=== PATIENT | female | born 1970 | race Caucasian/White ===

== ENCOUNTER 2018-09-04 05:54 | Emergency (ER) | payer SELFPAY ==
[2018-09-04] MEDS ORDERED: Ciproflox/Dexameth OTIC.SUSP* 7.5 ML BTL LEFT EAR ONE (06:21)
--- NOTE | 2018-09-04 06:34 | ED ---
Throat Pain/Nasal Congestion - HPI Summary HPI Summary: 48 year old female presents with ear pain for her left ear for the past 3 weeks. It started after swimming. Started getting worst. She had fever once but has not had fever since. She states pain radiates around her head. She has been having intermittent sharp pain. She lost hearing 2 weeks ago of left ear. Has never had this before. Denies any sinus congestion. No sore throat. Has no medical conditions. - History of Current Complaint Chief Complaint: EDEarPain Time Seen by Provider: 09/04/18 06:13 - Allergies/Home Medications Allergies/Adverse Reactions: Allergies Allergy/AdvReac Type Severity Reaction Status Date / Time MS Sulfa Drugs [Sulfa Drugs] Allergy Severe Rash Verified 11/26/12 12:45 Beef Containing Products Allergy See Comment Verified 09/04/18 05:59 MS Ibuprofen [Ibuprofen] AdvReac Severe KIDNEY Verified 11/19/12 09:21 FAILURE Epi-pen Allergy cardiac Uncoded 11/26/12 12:46 arrest PMH/Surg Hx/FS Hx/Imm Hx Endocrine/Hematology History: Denies: Hx Anticoagulant Therapy Respiratory History: Denies: Hx Asthma Infectious Disease History: No Infectious Disease History: Denies: Traveled Outside the [place] in Last 30 Days - Family History Known Family History: Positive: Non-Contributory - Social History Alcohol Use: Occasionally Substance Use Type: Reports: Marijuana Review of Systems Negative: Fever Positive: Ear Ache Negative: Chest Pain Negative: Shortness Of Breath All Other Systems Reviewed And Are Negative: Yes Physical Exam Triage Information Reviewed: Yes Vital Signs On Initial Exam: Initial Vitals Temp Pulse Resp BP Pulse Ox 97.7 F 75 14 144/85 98 09/04/18 05:57 09/04/18 05:57 09/04/18 05:57 09/04/18 05:57 09/04/18 05:57 Vital Signs Reviewed: Yes Appearance: Positive: Well-Appearing Skin: Positive: Warm, Dry Head/Face: Positive: Normal Head/Face Inspection Eyes: Positive: Normal, EOMI, ESTEE, Conjunctiva Clear ENT: Positive: Pharynx normal, TMs normal, Other - ear canal edematous and erythematous with debris in left ear with small ear canal present due to swelling, positive tragus tenderness Respiratory/Lung Sounds: Positive: Clear to Auscultation, Breath Sounds Present Cardiovascular: Positive: Normal, RRR Abdomen Description: Positive: Nontender, Soft Bowel Sounds: Positive: Present Musculoskeletal: Positive: Normal Neurological: Positive: Normal Psychiatric: Positive: Normal Diagnostics - Vital Signs Vital Signs Temp Pulse Resp BP Pulse Ox 09/04/18 05:57 97.7 F 75 14 144/85 98 - Laboratory Lab Statement: Any lab studies that have been ordered have been reviewed, and results considered in the medical decision making process. EENT Course/Dx - Course Course Of Treatment: 48 year old female presents with ear pain for her left ear for the past 3 weeks. It started after swimming. Started getting worst. She had fever once but has not had fever since. She states pain radiates around her head. She has been having intermittent sharp pain. She lost hearing 2 weeks ago of left ear. Has never had this before. Denies any sinus congestion. No sore throat. Has no medical conditions. On exam left ear canal edematous and erythematous with debris present. removed some of the debris and placed ear wic as ear canal is severely swollen. will also placed on oral cipro due to severity of symptoms. patient understand and agrees with plan. - Differential Diagnoses Differential Diagnoses: Otitis Externa, Otitis Media, Sinusitis - Diagnoses Provider Diagnoses: Left otitis externa Discharge - Sign-Out/Discharge Documenting (check all that apply): Patient Departure Patient Received Moderate/Deep Sedation with Procedure: No - Discharge Plan Condition: Good Disposition: HOME Prescriptions: Ciprofloxacin TAB* [Cipro 500 MG TAB*] 500 mg PO BID #14 tab Patient Education Materials: Otitis Externa (ED) [place] [facility] [[place]] Additional Instructions: Use 4 drops twice a day for 7 days take cipro twice a day for 7 days Take Tylenol for pain every 6 hours as needed Avoid swimming until done with antibiotic establish care with primary Return to ED if develop any new or worsening symptoms - Billing Disposition and Condition Condition: GOOD Disposition: Home
[2018-09-04 06:51] VITALS: BP 126/74
== END 2018-09-04 06:49 | disposition home or self-care (01) ==
LOC: ED 05:54
DX: H60.92 Unspecified otitis externa, left ear (principal); Z88.2 Allergy status to sulfonamides; Z88.8 Allergy status to other drugs, medicaments and biological substances
CPT/HCPCS: 99282; A9270-GY

== ENCOUNTER 2018-09-24 11:13 | Emergency (ER) | payer SELFPAY ==
[2018-09-24 13:35] VITALS: BP 146/84
--- NOTE | 2018-09-24 14:20 | UC ---
Respiratory Complaint HPI - HPI Summary HPI Summary: 48-year-old with complaints of left ear pain, decreased hearing, nasal congestion, sore throat, and cough. States she was seen in the emergency room on 09/04/2018 for left ear pain and diagnosed with swimmer's ear and was placed on a course of Cipro for the infection which she completed. Patient states that her symptoms improved until 3 days ago when she started with ear pain and fullness in her ear. Denies fever, chills, ear drainage, dysphasia, shortness of breath, chest pain, abdominal pain, nausea, vomiting, or diarrhea. - History of Current Complaint Chief Complaint: UCRespiratory Stated Complaint: RESP COMPLAINT Time Seen by Provider: 09/24/18 13:51 Hx Obtained From: Patient Hx Last Menstrual Period: one week Pain Intensity: 7 - Allergies/Home Medications Allergies/Adverse Reactions: Allergies Allergy/AdvReac Type Severity Reaction Status Date / Time ammonia Allergy Swelling Verified 09/24/18 13:38 Beef Containing Products Allergy See Comment Verified 09/24/18 13:38 ibuprofen Allergy See Comment Verified 09/24/18 13:38 Sulfa (Sulfonamide Allergy Rash Verified 09/24/18 13:38 Antibiotics) Epi-pen Allergy cardiac Uncoded 09/24/18 13:38 arrest PMH/Surg Hx/FS Hx/Imm Hx Previously Healthy: Yes Cardiovascular History: Hypertension Other History Of: Negative For: Anticoagulant Therapy - Surgical History Surgical History: None - Family History Known Family History: Positive: Non-Contributory - Social History Occupation: Works From/At Home Lives: With Family Alcohol Use: Occasionally Substance Use Type: Marijuana Smoking Status (MU): Light Every Day Tobacco Smoker Household Exposure Type: Cigarettes Review of Systems All Other Systems Reviewed And Are Negative: Yes Constitutional: Negative: Fever, Chills Skin: Negative: Rash Eyes: Negative: Drainage, Eye Redness ENT: Positive: Sore Throat, Ear Ache - left, Nasal Discharge, Sinus Congestion. Negative: Sinus Pain/Tenderness Respiratory: Positive: Cough. Negative: Shortness Of Breath Cardiovascular: Negative: Palpitations, Chest Pain Gastrointestinal: Negative: Abdominal Pain, Vomiting, Diarrhea, Nausea Genitourinary: Positive: Negative Musculoskeletal: Positive: Negative Neurological: Positive: Negative Is Patient Immunocompromised?: No Physical Exam - Summary Physical Exam Summary: GENERAL APPEARANCE: Well developed, well nourished, alert and cooperative, and appears to be in no acute distress. EYES: Conjunctiva clear. No drainage. EARS: External auditory canals clear. Right TM normal. Left TM with small effusion and air bubbles without erythema. NOSE: Mild-moderate nasal congestion. No nasal discharge. THROAT: Pharyngeal cobblestoning. No tonsilar inflammation, swelling, exudate, or lesions. Uvula midline. Oral cavity normal. Teeth and gingiva in good general condition. NECK: Neck supple, non-tender without lymphadenopathy. CARDIAC: Normal S1 and S2. No S3, S4 or murmurs. Rhythm is regular. There is no peripheral edema, cyanosis or pallor. Extremities are warm and well perfused. Capillary refill is less than 2 seconds. Peripheral pulses intact. LUNGS: Clear to auscultation without rales, rhonchi, wheezing or diminished breath sounds. Non-productive cough. ABDOMEN: Positive bowel sounds. Soft, nondistended, nontender. No guarding or rebound. No masses or hepatosplenomegally. MUSKULOSKELETAL: ROM intact to all extremities. No joint erythema or tenderness. Normal muscular development. Normal gait. SKIN: Skin normal color, texture and turgor with no lesions or eruptions. Triage Information Reviewed: Yes Vital Signs: Initial Vital Signs Temp 98.9 F 09/24/18 13:33 Pulse 80 09/24/18 13:33 Resp 18 09/24/18 13:33 BP 146/84 09/24/18 13:33 Pulse Ox 99 09/24/18 13:33 Vital Signs Reviewed: Yes Respiratory Course/Dx - Course Course Of Treatment: 48-year-old with complaints of left ear pain, decreased hearing, nasal congestion, sore throat, and cough. States she was seen in the emergency room on 09/04/2018 for left ear pain and diagnosed with swimmer's ear and was placed on a course of Cipro for the infection which she completed. Patient states that her symptoms improved until 3 days ago when she started with ear pain and fullness in her ear. Denies fever, chills, ear drainage, dysphasia, shortness of breath, chest pain, abdominal pain, nausea, vomiting, or diarrhea. Afebrile. Hypertensive otherwise vital signs stable. Patient had mild-to- moderate nasal congestion, a small effusion with air bubbles behind the left TM without erythema, pharyngeal cobblestoning, nonproductive cough, and otherwise unremarkable exam. Suspect that her current symptoms are related to a viral upper respiratory infection with a left serous otitis. Recommending symptomatic treatment at this time including fluticasone nasal spray 2 sprays each nostril once daily and Tessalon Perles one capsule every 8 hours as needed for cough. Patient does not presently have a primary care provider therefore she is to follow-up at [facility] in 7 days if symptoms are not improving. Anticipatory guidance and warning symptoms were reviewed with the patient. Verbalizes understanding and agrees with plan of care. - Differential Dx/Diagnosis Differential Diagnosis/HQI/PQRI: Bronchitis, Lower Resp Infection, Sinusitis, Other - URI Provider Diagnosis: URI with cough and congestion, Left serous otitis media Discharge - Sign-Out/Discharge Documenting (check all that apply): Patient Departure All imaging exams completed and their final reports reviewed: No Studies - Discharge Plan Condition: Stable Disposition: HOME Prescriptions: Benzonatate CAP* [Tessalon 100 MG CAP*] 100 mg PO TID PRN #21 cap PRN Reason: Cough Fluticasone NASAL SPRAY 50MCG* [Flonase NASAL SPRAY 50MCG*] 2 spray BOTH NARES DAILY #1 btl Patient Education Materials: Upper Respiratory Infection (ED), Serous Otitis Media (ED) Referrals: No Primary Care Phys,NOPCP [Primary Care Provider] - [facility] [Outside] - 7 Days (Call for appointment) Additional Instructions: Your history and exam are consistent with a viral upper respiratory infection. Viral infections do not respond to antibiotics and are limited to the treatment of symptoms. Viral infections typically run their course in 7-10 days. Drink plenty of fluids to avoid dehydration especially if you are running any fever. Use fluticasone (Flonase) nasal spray 2 sprays each nostril once daily. Take Tessalon Perles 1 capsule every 8 hours as needed for cough. Take over the counter acetaminophen (Tylenol) or ibuprofen (Advil, Motrin) according to directions as needed for pain or fever. Use salt water gargles several times a day if you have a sore throat. You may also use Chloraseptic spray or Cepacol lonzenges according to directions which contain a numbing medication and can provide some temporary relief from your sore throat. Follow up with the [facility] in 7 days if symptoms persist. Seek immediate medical attention in the emergency room if you have fever greater than 100.5 F despite taking acetaminophen or ibuprofen, have chest pain , difficulty breathing, are unable to swallow, or have any worsening of symptoms. - Billing Disposition and Condition Condition: STABLE Disposition: Home
== END 2018-09-24 14:49 | disposition home or self-care (01) ==
LOC: UCEAST 11:13
DX: H65.92 Unspecified nonsuppurative otitis media, left ear (principal); J06.9 Acute upper respiratory infection, unspecified; I10 Essential (primary) hypertension; F17.210 Nicotine dependence, cigarettes, uncomplicated; Z88.2 Allergy status to sulfonamides
CPT/HCPCS: 99212; G0463

== ENCOUNTER 2018-10-03 06:08 | Emergency (ER) | payer SELFPAY ==
[2018-10-03] MEDS ORDERED: predniSONE TAB* 20 MG PO ONE (06:22)
[2018-10-03] MEDS ORDERED: Famotidine TAB* 20 MG PO ONE (06:23)
[2018-10-03] MEDS ORDERED: diPHENhydraMINE PO* 25 MG PO ONE (06:23)
--- NOTE | 2018-10-03 06:25 | ED ---
Allergic Reaction/Systemic - HPI Summary HPI Summary: 48-year-old female presents with a rash today. States that she gets a rash when she eats beef. She states that she took a Benadryl last night but the rash has been progressing. She states she normally gets steroids. She states she normally gets some swelling into her hands and feets if this progresses. She denies any chest or shortness breath currently. No sore throat. No abdominal pain. No nausea and vomiting. She was having left ear pain for the past month. She was initially treated for an otitis externa. She states that her symptoms seemed to get better but then after she stopped the antibiotics a couple days the symptoms got worse again. She states that she was seen in urgent care and started on Flonase with no improvement. She denies any sinus congestion. No fevers. - History of Current Complaint Chief Complaint: EDAllergicReaction Time Seen by Provider: 10/03/18 06:17 Hx Last Menstrual Period: one week Pain Intensity: 0 - Allergies/Home Medications Allergies/Adverse Reactions: Allergies Allergy/AdvReac Type Severity Reaction Status Date / Time ammonia Allergy Swelling Verified 10/03/18 06:17 Beef Containing Products Allergy See Comment Verified 10/03/18 06:17 ibuprofen Allergy See Comment Verified 10/03/18 06:17 Sulfa (Sulfonamide Allergy Rash Verified 10/03/18 06:17 Antibiotics) Epi-pen Allergy cardiac Uncoded 10/03/18 06:17 arrest PMH/Surg Hx/FS Hx/Imm Hx Endocrine/Hematology History: Denies: Hx Anticoagulant Therapy Respiratory History: Denies: Hx Asthma Infectious Disease History: No Infectious Disease History: Denies: Traveled Outside the [place] in Last 30 Days - Family History Known Family History: Positive: Non-Contributory - Social History Alcohol Use: Occasionally Substance Use Type: Reports: Marijuana Smoking Status (MU): Light Every Day Tobacco Smoker Review of Systems Negative: Fever Positive: Ear Ache Negative: Chest Pain Negative: Shortness Of Breath Positive: Rash All Other Systems Reviewed And Are Negative: Yes Physical Exam Triage Information Reviewed: Yes Vital Signs On Initial Exam: Initial Vitals Temp Pulse Resp BP Pulse Ox 96.8 F 79 18 132/95 99 10/03/18 06:15 10/03/18 06:15 10/03/18 06:15 10/03/18 06:15 10/03/18 06:15 Vital Signs Reviewed: Yes Appearance: Positive: Well-Appearing Skin: Positive: Other - urticaria across legs Head/Face: Positive: Normal Head/Face Inspection Eyes: Positive: Normal, EOMI, ESTEE, Conjunctiva Clear ENT: Positive: Pharynx normal, TMs normal, Other - left ear canal mild edema and erythema, tenderness manipulation of tragus Respiratory/Lung Sounds: Positive: Clear to Auscultation, Breath Sounds Present Cardiovascular: Positive: Normal, RRR Abdomen Description: Positive: Nontender, Soft Bowel Sounds: Positive: Present Musculoskeletal: Positive: Normal Neurological: Positive: Normal Psychiatric: Positive: Normal Diagnostics - Vital Signs Vital Signs Temp Pulse Resp BP Pulse Ox 10/03/18 06:15 96.8 F 79 18 132/95 99 - Laboratory Lab Statement: Any lab studies that have been ordered have been reviewed, and results considered in the medical decision making process. Re-Evaluation - Re-Evaluation First Eval Re-Evaluation Time: 07:23 Change: Improved Comment: hives improved Allergic Reaction Course/Dx - Course Course Of Treatment: 48-year-old female presents with a rash today. States that she gets a rash when she eats beef. She states that she took a Benadryl last night but the rash has been progressing. She states she normally gets steroids. She states she normally gets some swelling into her hands and feets if this progresses. She denies any chest or shortness breath currently. No sore throat. No abdominal pain. No nausea and vomiting. She was having left ear pain for the past month. She was initially treated for an otitis externa. She states that her symptoms seemed to get better but then after she stopped the antibiotics a couple days the symptoms got worse again. She states that she was seen in urgent care and started on Flonase with no improvement. She denies any sinus congestion. No fevers. On exam left ear canal is erythematous and edematous mildly. TMs normal. Has a urticaria rash across legs. Gave Benadryl Pepcid and steroid with some improvement. Will prescribe prednisone and pepcid for at home for next 4 days. will prescribe Ciprodex for ear. will follow up ENT if no improvement. Patient understands agrees plan. - Diagnoses Differential Diagnosis/HQI/PQRI: Positive: Anaphylaxis, Local Allergic Reaction , Urticaria Provider Diagnoses: Allergic reaction Discharge - Sign-Out/Discharge Documenting (check all that apply): Patient Departure Patient Received Moderate/Deep Sedation with Procedure: No - Discharge Plan Condition: Good Disposition: HOME Prescriptions: Famotidine TAB* [Pepcid 20 MG TAB*] 20 mg PO BID #9 tab predniSONE TAB* [Deltasone TAB*] 50 mg PO DAILY #4 tab Patient Education Materials: General Allergic Reaction (ED) Referrals: [facility] [place] [facility] [Outside] Nick Vargas MD [Medical Doctor] - Additional Instructions: Take Benadryl every 6 hours Take Pepcid twice a day for 5 days Take steroid once a day for 4 days starting tomorrow Take ciprodex 4 drops twice a day for 7 days follow up with ENT if no improvement Establish care with primary Return to ED if shortness of breath, chest pain, or if develop any new or worsening symptoms - Billing Disposition and Condition Condition: GOOD Disposition: Home
[2018-10-03] MEDS ORDERED: Ciproflox/Dexameth OTIC.SUSP* 7.5 ML BTL LEFT EAR ONE (07:21)
[2018-10-03 07:48] VITALS: BP 103/78
== END 2018-10-03 07:54 | disposition home or self-care (01) ==
LOC: ED 06:08
DX: T78.1XXA Other adverse food reactions, not elsewhere classified, initial encounter (principal); L50.0 Allergic urticaria; X58.XXXA Exposure to other specified factors, initial encounter; H92.02 Otalgia, left ear; Z88.6 Allergy status to analgesic agent; Z88.2 Allergy status to sulfonamides; Z91.018 Allergy to other foods; Z91.048 Other nonmedicinal substance allergy status; F17.200 Nicotine dependence, unspecified, uncomplicated
CPT/HCPCS: 99283; A9270-GY; J7512